=== PATIENT | female | born 2000 | race Two or more races ===

== ENCOUNTER 2023-12-16 19:23 | Inpatient (IN) | payer OTHER ==
[~2023-12-16] VITALS: Ht 154.9 cm; Wt 68.5 kg
[2023-12-16] MEDS ORDERED: ONDANSETRON HCL/PF 4 MG/2 ML VIAL ONE ×3 (19:40→21:30)
[2023-12-16] MEDS: IV LR 1000 ML 1,000 ML IV ONE (19:40)
[2023-12-16] MEDS: ONDANSETRON HCL/PF 4 MG/2 ML VIAL IV ONE (19:44)
[2023-12-16 20:15] LABS: BASOPHILS % (AUTO) 0.3 % (0.0-2.0); EOSINOPHILS % (AUTO) 0.1 % (0.0-6.0); HEMATOCRIT 45 % (33-45); HEMOGLOBIN 14.2 g/dL (11.5-14.8); LYMPHOCYTES # (AUTO) 2.2 K/uL (0.8-4.8); LYMPHOCYTES % (AUTO) 16.3 % (20.0-44.0); MEAN CORPUSCULAR HEMOGLOBIN 29 PG (26.0-33.0); MEAN CORPUSCULAR HGB CONC 32 g/dl (31.0-36.0); MEAN CORPUSCULAR VOLUME 90 fL (82-100); MONOCYTES # (AUTO) 1.2 K/uL (0.1-1.30); MONOCYTES % (AUTO) 8.7 % (2.0-12.0); NEUTROPHILS # (AUTO) 9.8 K/uL (1.8-8.9); NEUTROPHILS % (AUTO) 74.6 % (43.0-81.0); PLATELET COUNT (AUTO) 486 K/uL (150-450); RED BLOOD CELL COUNT(AUTO) 4.97 MIL/uL (4.0-5.2); RED CELL DISTRIBUTION WIDTH 14.4 % (11.5-15.0); WHITE BLOOD COUNT (AUTO) 13.2 K/uL (4.3-11.0)
[2023-12-16] MEDS: IV LR 1000 ML 1,000 ML BAG IV ONE (20:17)
[2023-12-16 20:26] LABS: CALCIUM, SERUM 9.9 mg/dL (8.5-10.1); CARBON DIOXIDE 13 mmol/L (21-32); CHLORIDE 104 mmol/L (98-107); CREATININE 1.6 mg/dL (0.6-1.3); GLUCOSE 248 mg/dL (74-106); POTASSIUM 3.4 mmol/L (3.5-5.1); SODIUM SERUM 139 mmol/L (136-145); UREA NITROGEN, BLOOD 8 mg/dL (7-18)
[2023-12-16 20:32] LABS: ALANINE AMINOTRANSFERASE 41 U/L (12-78); ALBUMIN 3.7 g/dL (3.4-5.0); ALKALINE PHOSPHATASE 183 U/L (46-116); ASPARTATE AMINOTRANSFERASE 34 U/L (15-37); BILIRUBIN,DIRECT 0.1 mg/dL (0.0-0.2); BILIRUBIN,TOTAL 0.4 mg/dL (0.2-1.0); TOTAL PROTEIN, SERUM 8.6 g/dL (6.4-8.2)
[2023-12-16 20:37] LABS: LACTIC ACID 8.1 mmol/L (0.4-2.0)
[2023-12-16 20:44] LABS: SITE, VBG Other; VBG BASE EXCESS -10.6 mmol/L (-3-3); VBG COHb 0.3 %; VBG MetHb 0.3 %; VBG O2Hb 50.3 %; VBG OXYGEN SATURATION 50.6 %; VBG PCO2 24.8 mmHg (40-52); VBG PH 7.345 (7.31-7.41); VBG TOTAL HEMOGLOBIN 13.2 G/dL (12.0-16.0); VENT MODE, VBG ROOM AIR
[2023-12-16] MEDS ORDERED: PIPERACI/TAZO 3.375GM/D5W 50ML PB IV ONE (20:51)
[2023-12-16] MEDS ORDERED: INSULIN REGULAR, HUMAN 100 UNIT/ML 10 ML VIAL ONE (20:51)
[2023-12-16] MEDS ORDERED: IV PREMIX D5 1/2NS + KCL 1,000 ML IV ONE (20:55)
[2023-12-16 21:11] LABS: CALCIUM, SERUM 9.4 mg/dL (8.5-10.1); CREATININE 1.4 mg/dL (0.6-1.3); POTASSIUM 3.6 mmol/L (3.5-5.1)
[2023-12-16 21:18] LABS: PHOSPHORUS 0.8 mg/dL (2.5-4.9)
[2023-12-16] MEDS: PIPERACILLIN /TAZOBACTAM 3.375 G in IV D5W 50 ML IV ONE (21:28)
[2023-12-16] MEDS: ACETAMINOPHEN ES 500 MG TABLET PO ONE (21:34)
[2023-12-16] MEDS: ONDANSETRON HCL/PF - ER 4 MG/2 ML VIAL IV ONE (21:34)
[2023-12-16] MEDS: IV PREMIX NS +20MEQ KCL 1 L IV PRN (21:38)
[2023-12-16] MEDS: INSULIN REGULAR, HUMAN 100 UNITS in IV NS 0.9% 100 ML IV PRN (21:39)
[2023-12-16] MEDS ORDERED: INSULIN REGULAR, HUMAN 100 UNIT in IV NS 0.9% 99 ML IV PRN (23:00)
[2023-12-16] MEDS ORDERED: IV NS 0.9% 1,000 ML BAG IV PRN (23:00)
[2023-12-16] MEDS ORDERED: MAG HYDROX/AL HYDROX/SIMETH 30 ML UDC PO PRN (23:00)
[2023-12-16] MEDS ORDERED: MAGNESIUM HYDROXIDE 30 ML UDC PO PRN (23:00)
[2023-12-16] MEDS ORDERED: ZOLPIDEM TARTRATE 5 MG TABLET PO PRN (23:00)
[2023-12-16] MEDS: BLOOD SUGAR DIAGNOSTIC 1 EACH STRIP IN SCH (23:00)
[2023-12-16] MEDS ORDERED: Z GUARD REMEDY 4 OZ OINT TP PRN (23:00)
[2023-12-16 23:33] LABS: PREGNANCY TEST URINE QUAL NEGATIVE (NEGATIVE)
[2023-12-16 23:34] LABS: APPEARANCE,URINE CLEAR (CLEAR); BILIRUBIN,URINE 1+ (NEGATIVE); BLOOD, URINE TRACE-INTA Ery/uL (NEGATIVE); COLOR,URINE YELLOW (YELLOW); KETONES,URINE 3+ mg/dL (NEGATIVE); LEUKOCYTE ESTERASE ,URINE NEGATIVE (NEGATIVE); NITRITE, URINE NEGATIVE (NEGATIVE); PH,URINE 5.5 (5.0-8.0); PROTEIN,URINE TRACE mg/dl (NEGATIVE); UGLUCOSE 3+ mg/dL (NEGATIVE); UROBILINOGEN,URINE 0.2 EU/dL (0.2)
[2023-12-16 23:41] LABS: ADD URINE CULTURE NO; BACTERIA,URINE Rare /HPF (None Seen); SQUAMOUS EPITHELIAL CELL,UR Moderate /HPF (None Seen); WBC,URINE 0-2 /HPF (0-3)
[2023-12-16 23:45] LABS: CALCIUM, SERUM 8.1 mg/dL (8.5-10.1); CREATININE 1.3 mg/dL (0.6-1.3); MAGNESIUM 1.8 mg/dL (1.8-2.4); POTASSIUM 3.5 mmol/L (3.5-5.1)
[2023-12-17] VITALS (17 sets, daily range): BP systolic 93–138; BP diastolic 57–94; TEMP 97.8–98.7; O2SAT 93–100
[2023-12-17 00:06] LABS: PHOSPHORUS 0.8 mg/dL (2.5-4.9)
[2023-12-17] MEDS: INSULIN REGULAR, HUMAN 100 UNIT in IV NS 0.9% 99 ML IV PRN (00:15)
[2023-12-17] MEDS: IV NS 0.9% 1,000 ML BAG IV SCH (00:20)
[2023-12-17] MEDS: ACETAMINOPHEN 325 MG TABLET PO PRN (01:29)
[2023-12-17] MEDS: ONDANSETRON HCL/PF 4 MG/2 ML VIAL IVP PRN (01:29)
[2023-12-17 01:40] LABS: CALCIUM, SERUM 8.4 mg/dL (8.5-10.1); MAGNESIUM 1.9 mg/dL (1.8-2.4); PHOSPHORUS 1.1 mg/dL (2.5-4.9); POTASSIUM 3.8 mmol/L (3.5-5.1)
[2023-12-17] MEDS: IV D5/0.45 NACL 1,000 ML IV PRN (01:43)
[2023-12-17] MEDS: POTASSIUM CL. PREMIX PERIPHER. 50 ML IV SCH (01:52)
[2023-12-17] MEDS: IV NS 0.9% 250 ML IV PRN (01:54)
[2023-12-17 02:30] LABS: LACTIC ACID 2.1 mmol/L (0.4-2.0)
[2023-12-17] MEDS ORDERED: PIPERACILLIN /TAZOBACTAM 3.375 G in IV D5W 250 ML IV ONE (03:30)
[2023-12-17] MEDS: PIPERACILLIN /TAZOBACTAM 3.375 G in IV D5W 50 ML IV ONE (03:43)
[2023-12-17] MEDS: PIPERACI/TAZO 3.375GM/D5W 50ML PB IV ONE (03:45)
[2023-12-17 04:54] LABS: BASOPHILS % (AUTO) 0.4 % (0.0-2.0); EOSINOPHILS # (AUTO) 0.1 K/uL (0.0-0.7); EOSINOPHILS % (AUTO) 1.1 % (0.0-6.0); HEMATOCRIT 33 % (33-45); HEMOGLOBIN 11.1 g/dL (11.5-14.8); LYMPHOCYTES # (AUTO) 2.8 K/uL (0.8-4.8); LYMPHOCYTES % (AUTO) 26.2 % (20.0-44.0); MEAN CORPUSCULAR HEMOGLOBIN 30 PG (26.0-33.0); MEAN CORPUSCULAR HGB CONC 34 g/dl (31.0-36.0); MEAN CORPUSCULAR VOLUME 88 fL (82-100); MONOCYTES # (AUTO) 1.5 K/uL (0.1-1.30); MONOCYTES % (AUTO) 13.8 % (2.0-12.0); NEUTROPHILS # (AUTO) 6.2 K/uL (1.8-8.9); NEUTROPHILS % (AUTO) 58.5 % (43.0-81.0); PLATELET COUNT (AUTO) 354 K/uL (150-450); RED CELL DISTRIBUTION WIDTH 14.2 % (11.5-15.0); WHITE BLOOD COUNT (AUTO) 10.6 K/uL (4.3-11.0)
[2023-12-17 05:06] LABS: CALCIUM, SERUM 8.2 mg/dL (8.5-10.1); CREATININE 0.9 mg/dL (0.6-1.3); MAGNESIUM 2.2 mg/dL (1.8-2.4); PHOSPHORUS 2.2 mg/dL (2.5-4.9); POTASSIUM 4.1 mmol/L (3.5-5.1)
[2023-12-17 05:12] LABS: LACTIC ACID 0.6 mmol/L (0.4-2.0)
[2023-12-17] MEDS: PIPERACILLIN /TAZOBACTAM 3.375 G in IV D5W 100 ML IV SCH (09:17)
[2023-12-17] MEDS ORDERED: METO-357 PO (10:32)
[2023-12-17] MEDS ORDERED: FAMO40TA7 PO (10:32)
[2023-12-17] MEDS ORDERED: INSU100V39 SQ (10:32)
[2023-12-17] MEDS ORDERED: LAMO25TA5 PO (10:32)
[2023-12-17] MEDS ORDERED: LOSA25TA27 PO (10:32)
[2023-12-17 11:49] LABS: CALCIUM, SERUM 8.1 mg/dL (8.5-10.1); CREATININE 0.8 mg/dL (0.6-1.3); MAGNESIUM 1.9 mg/dL (1.8-2.4); PHOSPHORUS 1.8 mg/dL (2.5-4.9); POTASSIUM 3.2 mmol/L (3.5-5.1)
[2023-12-17] MEDS: K PHOS NEUTRAL 250 MG TABLET PO ONE (12:12)
[2023-12-17] MEDS: INSULIN LISPRO/ASPART 100 UNIT/ML CARTRIDGE SQ ONE (12:15)
[2023-12-17] MEDS: INSULIN GLARGINE, 100 UNIT/ML CARTRIDGE SQ ONE (12:29)
[2023-12-18 12:12] LABS: HEPATITIS B CORE AB, IgM Negative (Negative); HEPATITIS B CORE AB, TOTAL Negative (Negative); HEPATITIS B SURFACE AB Non Reactive (.); HEPATITIS Be AG Negative (Negative)
== END 2023-12-17 14:58 | disposition home or self-care (01) | DRG 639 ==
LOC: ER 19:25 → ICU 21:26
PROVIDERS: ADMIT Nurse Practitioner Family; ATTEND Nurse Practitioner Family
DX: E10.10 Type 1 diabetes mellitus with ketoacidosis without coma (principal); E86.0 Dehydration; I10 Essential (primary) hypertension; Z79.4 Long term (current) use of insulin; E83.39 Other disorders of phosphorus metabolism; D72.829 Elevated white blood cell count, unspecified
CPT/HCPCS: 36415; 71045-TC; 80048-TC; 80061-TC; 80076-TC; 81001; 82803-TC; 82962-TC; 83540-TC; 83605-TC; 83735-TC; 84100-TC; 84703-TC; 85025-TC; 86704; 86705; 86706; 86707; 86803; 87040-TC; 87081-TC; 87086-TC; 87340; 87350; A4223; G0378; J1815; J2405; J2543; J3480; J3490; J7030; J7050; J7060; J7120